=== PATIENT | female | born 1985 | race Caucasian/White ===

== ENCOUNTER 2017-01-29 07:18 | Emergency (ER) | payer OTHER ==
--- NOTE | 2017-01-29 08:46 | ED CLINICAL REPORT ---
Clinical Report - Physicians/Mid Levels [facility] [address] [place] [address] 01/29/2017 7:20 Patient: JOANIE OROSCO Time Seen: 07:49. Arrived- By private vehicle. Historian- patient. HISTORY OF PRESENT ILLNESS Chief Complaint: SORE THROAT. This started about 4 days ago, worse about 6 PM and is still present. It was gradual in onset. Pain described as moderate. The patient has had a moderate sore throat. No mouth sores, nasal discharge, toothache or swollen jaw or face. No jaw pain or facial pain. She has had moderate right ear pain. (Swallowing water is painful). Similar symptoms previously: None. Recent medical care: Not recently seen/assessed. REVIEW OF SYSTEMS Last normal menstrual period- 1.5 weeks. Uses condoms. She has had low grade fever. No eye discomfort, cough, difficulty breathing, chest pain or nausea. No abdominal pain or difficulty with urination. PAST HISTORY PCP: Saul Thurman Illness: None Ops: R ankle, breast augmentation. SOCIAL HISTORY Never smoker. ADDITIONAL NOTES The nursing notes have been reviewed. PHYSICAL EXAM Vital Signs: 01/29/2017 07:29 BP: 132/72. HR: 96. RR: 18. O2 saturation: 98%. Temp: 99.5 F. Pain level now: 9/10. Appearance: Alert. Patient in mild distress. ENT: Ears normal. Small right-sided peritonsillar mass. No mouth ulcerations, tonsillar exudate, muffled or hoarse voice or drooling. The mucous membranes are not dry. Neck: Moderate left anterior neck lymphadenopathy present. Trachea midline. Respiratory: No respiratory distress. Breath sounds normal. Abdomen: Soft. No organomegaly. LABS, X-RAYS, AND EKG Laboratory Tests: Urine: (WICHO: 01/29/2017 07:46) ( MsgRcvd 01/29/2017 08:17) Final results Test Result Flag Units (Reference) URINE NEGATIVE Culture, Strep Screen: (WICHO: 01/29/2017 07:46) ( MsgRcvd 01/31/2017 08:43) Final results Test Result Flag Units (Reference) RAPID STREP SCREEN - THROAT DATE: 01/29/17 NEGATIVE SCREEN: RAPID STREP SCREEN NEGATIVE; CONFIRMATION TO FOLLOW . DATE: 01/31/17 NO BETA STREP ISOLATED: NO BETA STREP ISOLATED . PROGRESS AND PROCEDURES Course of Care: Ms Orosco has an early but definite R peritonsillar abscess or phlegmon. I do not think imaging would add to care at this point. it is not a diagnostic dilemma. No impending airway compromise. Disposition: Discharged. Condition: stable. CLINICAL IMPRESSION Right peritonsillar abscess. INSTRUCTIONS (THIS IS A COLLECTION OF PUS BEHIND YOUR R TONSIL. THE EAR LOOKS OK IMMEDIATE RECHECK FOR INCREASING PAIN OR DIFFICULTY SWALLOWING REALLY WORK AT GETTING FLUIDS DOWN. YOU NEED TO BE URINATING AT LEAST EVERY 4 HOURS.). Prescription Medications: Augmentin 875 mg: take 1 tablet orally every 12 hours for 10 days. No refill. Lortab Elixir take ten (10) mL orally every 4 hours for 4 days as needed for pain. Dispense sufficient quantity. No refill. Substitution is permissible. Decadron 4 mg: Take 1 orally every day. Dispense five (5). No refills. Substitution is permissible. (decadron liquid 6 mg po daily x 4 days) Follow-up: Follow up with your doctor Tuesday. Call for an appointment. Understanding of the discharge instructions verbalized by patient and family. (Electronically signed by Dhruv Hardy MD 01/31/2017 10:02)
--- NOTE | 2017-01-29 08:46 | ED CLINICAL REPORT ---
Clinical Report - Physicians/Mid Levels [facility] [address] [place] [address] 01/29/2017 7:20 Patient: JOANIE OROSCO Time Seen: 07:49. Arrived- By private vehicle. Historian- patient. HISTORY OF PRESENT ILLNESS Chief Complaint: SORE THROAT. This started about 4 days ago, worse about 6 PM and is still present. It was gradual in onset. Pain described as moderate. The patient has had a moderate sore throat. No mouth sores, nasal discharge, toothache or swollen jaw or face. No jaw pain or facial pain. She has had moderate right ear pain. (Swallowing water is painful). Similar symptoms previously: None. Recent medical care: Not recently seen/assessed. REVIEW OF SYSTEMS Last normal menstrual period- 1.5 weeks. Uses condoms. She has had low grade fever. No eye discomfort, cough, difficulty breathing, chest pain or nausea. No abdominal pain or difficulty with urination. PAST HISTORY PCP: Saul Thurman Illness: None Ops: R ankle, breast augmentation. SOCIAL HISTORY Never smoker. ADDITIONAL NOTES The nursing notes have been reviewed. PHYSICAL EXAM Vital Signs: 01/29/2017 07:29 BP: 132/72. HR: 96. RR: 18. O2 saturation: 98%. Temp: 99.5 F. Pain level now: 9/10. Appearance: Alert. Patient in mild distress. ENT: Ears normal. Small right-sided peritonsillar mass. No mouth ulcerations, tonsillar exudate, muffled or hoarse voice or drooling. The mucous membranes are not dry. Neck: Moderate left anterior neck lymphadenopathy present. Trachea midline. Respiratory: No respiratory distress. Breath sounds normal. Abdomen: Soft. No organomegaly. LABS, X-RAYS, AND EKG Laboratory Tests: Urine: (WICHO: 01/29/2017 07:46) ( MsgRcvd 01/29/2017 08:17) Final results Test Result Flag Units (Reference) URINE NEGATIVE Culture, Strep Screen: (WICHO: 01/29/2017 07:46) ( MsgRcvd 01/31/2017 08:43) Final results Test Result Flag Units (Reference) RAPID STREP SCREEN - THROAT DATE: 01/29/17 NEGATIVE SCREEN: RAPID STREP SCREEN NEGATIVE; CONFIRMATION TO FOLLOW . DATE: 01/31/17 NO BETA STREP ISOLATED: NO BETA STREP ISOLATED . PROGRESS AND PROCEDURES Course of Care: Ms Orosco has an early but definite R peritonsillar abscess or phlegmon. I do not think imaging would add to care at this point. it is not a diagnostic dilemma. No impending airway compromise. Disposition: Discharged. Condition: stable. CLINICAL IMPRESSION Right peritonsillar abscess. INSTRUCTIONS (THIS IS A COLLECTION OF PUS BEHIND YOUR R TONSIL. THE EAR LOOKS OK IMMEDIATE RECHECK FOR INCREASING PAIN OR DIFFICULTY SWALLOWING REALLY WORK AT GETTING FLUIDS DOWN. YOU NEED TO BE URINATING AT LEAST EVERY 4 HOURS.). Prescription Medications: Augmentin 875 mg: take 1 tablet orally every 12 hours for 10 days. No refill. Lortab Elixir take ten (10) mL orally every 4 hours for 4 days as needed for pain. Dispense sufficient quantity. No refill. Substitution is permissible. Decadron 4 mg: Take 1 orally every day. Dispense five (5). No refills. Substitution is permissible. (decadron liquid 6 mg po daily x 4 days) Follow-up: Follow up with your doctor Tuesday. Call for an appointment. Understanding of the discharge instructions verbalized by patient and family. (Electronically signed by Dhruv Hardy MD 01/31/2017 10:02)
--- NOTE | 2017-01-29 08:47 | ED NURSING NOTES ---
Clinical Report - Nurses [facility] [address] [place] [address] 01/29/2017 7:20 Patient: JOANIE OORSCO TRIAGE Chief Complaint: SORE THROAT. Alert. No acute distress. SEPSIS SCREEN: Sepsis Screen. Negative (no infection suspected/documented). --07:32 Delia Yousif R.N. 07:29 01/29/17. BP: 132/72. HR: 96. RR: 18. O2 saturation: 98% on room air. Temp: 99.5 F (oral). Pain level now: 05/22. --07:32 Delia Yousif R.N. Weight: 68 kg stated. Height/Length: 65 inches Per Patient. BMI: 25. --07:30 Delia Yousif R.N. Medications None. --07:30 Delia Yousif R.N. Medication/allergy information source: the patient. --07:32 Delia Yousif R.N. Allergies Sulfa Antibiotics. --07:30 Delia Yousif R.N. History Arrived by private vehicle. Historian: patient. Accompanied by (kami). Primary physician (Olman). Onset. (5 days ago). She has had ear pain. PAST MEDICAL HX: Immunizations: status is unknown. SOCIAL HX: Never smoker. No alcohol use or drug use. FALL RISK ASSESSMENT: Fall risk assessment completed. No fall risk identified. NUTRITIONAL RISK ASSESSMENT: The nutritional risk assessment revealed no deficiencies. FUNCTIONAL ASSESSMENT: Functional assessment: no impairments noted. LEARNING NEEDS ASSESSMENT: The learning needs assessment revealed no barriers. SKIN INTEGRITY ASSESSMENT: Skin integrity risk assessment completed. No skin integrity risk identified. --07:32 Delia Yousif R.N. Assessment GENERAL / NEURO / PSYCH: Alert. Oriented X 4. Appears in no acute distress. Patient appears calm and cooperative. RESPIRATORY: Respirations not labored. CVS: Capillary refill less than 2 seconds. GI / : Abdomen nontender. SKIN: Mucous membranes are pink. Skin is warm and dry. --07:32 Delia Yousif R.N. Interventions ID band on patient. To room. --07:32 Delia Yousif R.N. PHYSICAL ASSESSMENT 07:34 01/29/17. Ambulatory to room. GENERAL / NEURO / PSYCH: Alert. Oriented X 4. Appears in no acute distress. HEENT: Pupils equal, round and reactive to light. Voice within normal limits. No signs of head trauma. No dental injury noted. Mucous membranes are pink. RESPIRATORY: Respirations not labored. SKIN: Skin is warm and dry. Normal skin turgor. --07:34 Delia Yousif R.N. NURSING PROGRESS NOTES 07:34 01/29/17. Two patient identifiers checked. Checked patient name and birthdate: patient confirmed. Call light placed in reach. Bed placed in lowest position. Brakes of bed on. Patient ready for evaluation- chart flagged and ED physician notified. --07:34 Delia Yousif R.N. 08:10 01/29/2017 Decadron (Dexamethasone) PO 6 mg given. Allergies verified and confirmed 5 rights. --08:10 Delia Yousif R.N. 08:11 01/29/2017 Lortab Liquid (Hydrocodone-APAP) PO 15 mL given. Allergies verified, confirmed 5 rights and sedative warning given to the patient. (dose 7.5/[address] Hardy). --08:11 Delia Yousif R.N. Checked patient name and birthdate: patient confirmed. Instructions provided to collect clean catch urine and patient verbalized understanding. Clean catch urine collected with return of yellow-colored clear urine; sample sent to lab for HCG. Specimen labeled in the presence of the patient. --08:13 Delia Yousif R.N. 08:13 01/29/17. Checked patient name and birthdate: patient confirmed. Throat swab obtained for rapid strep; labeled in the presence of the patient. --08:13 Delia Yousif R.N. 08:17 01/29/2017 Augmentin (Amoxicillin-Pot Clavulanate) PO 875 mg given. Allergies verified and confirmed 5 rights. --08:17 Delia Yousif R.N. DISPOSITION / DISCHARGE 08:55. Departure time: 0855. Condition at departure: stable. The goals identified in the patient's plan of care were met. No learning barriers present. Discharge instructions provided and reviewed with the patient. Reviewed medication(s) side effects, precautions, dosing and course information. Prescription(s) given to the patient (Pt verbalizes importance of finishing all prescribed anbx. She verbalizes safe, proper use of all prescribed narcotics. She verbalizes importance of not driving and/or operating heavy machinery while taking sedatives.). Reviewed need for increased fluid intake. Patient verbalized understanding. Written instructions provided in Urdu. The patient was discharged by the physician. She was discharged home and accompanied by spouse. She left the Emergency Department ambulatory and via private vehicle. Spouse driving. SUNNI COMA SCORE: Holder Coma Scale: 15- eyes open spontaneously (4); best verbal response- oriented x 4 (5); best motor response- obeys commands (6). --08:59 Cj Burch R.N. 08:56 01/29/17. BP: 123/63 (regular adult cuff) taken on the left arm, via an automated monitor, while sitting. HR: 74 (normal rate). RR: 14 (regular, unlabored and normal). O2 saturation: 98% on room air. Temp: 98.6 F (oral). Pain level now: 04/21. --08:59 Cj Burch R.N. Locked/Released at 01/29/2017 8:59 by Cj Burch R.N.
--- NOTE | 2017-01-29 08:47 | ED ORDER SUMMARY ---
..... Patient: JOANIE OROSCO OrderSheet [facility] VisitID: [id number] [address] [place] [address] 31y, F Registration Date/Time: 01/29/2017 ORDER SHEET Weight: 68.0 kg (stated) Allergies: Sulfa Antibiotics GENERAL ORDERS: Culture, Strep Screen Urgent (07:54 01/29/2017 Rosi GORDON) (Ack 7:56 Vik) (8:10 MWinterer R.N.) Urine Urgent (07:55 01/29/2017 Rosi GORDON) (Ack 7:56 Vik) (8:10 MWinterer R.N.) MEDICATION ORDERS: Decadron PO 6 mg (NOW) (07:56 01/29/2017 Rosi GORDON) (Ack 8:02 MWinterer R.N.) (8:10 MWinterer R.N.) Lortab Liquid PO 15 mL of 5/325 per 15 ml (NOW) (07:57 01/29/2017 Rosi GORDON) (8:11 MWinterer R.N.) Augmentin PO 875 mg (NOW) (08:06 01/29/2017 Rosi GORDON) (Ack 8:11 MWinterer R.N.) (8:17 MWinterer R.N.) IV FLUIDS: ORDER SHEET NOTES: [Electronically signed by Cj Burch R.N. (08:59 01/29/2017)] [Electronically signed by Dhruv Hardy MD (10:02 01/31/2017)] [Electronically locked/signed by Cj Burch R.N. (08:59 01/29/2017)]
--- NOTE | 2017-01-29 08:47 | ED ORDER SUMMARY ---
..... Patient: JOANIE OROSCO OrderSheet [facility] VisitID: [id number] [address] [place] [address] 31y, F Registration Date/Time: 01/29/2017 ORDER SHEET Weight: 68.0 kg (stated) Allergies: Sulfa Antibiotics GENERAL ORDERS: Culture, Strep Screen Urgent (07:54 01/29/2017 Rosi GORDON) (Ack 7:56 Vik) (8:10 MWinterer R.N.) Urine Urgent (07:55 01/29/2017 Rosi GORDON) (Ack 7:56 Vik) (8:10 MWinterer R.N.) MEDICATION ORDERS: Decadron PO 6 mg (NOW) (07:56 01/29/2017 Rosi GORDON) (Ack 8:02 MWinterer R.N.) (8:10 MWinterer R.N.) Lortab Liquid PO 15 mL of 5/325 per 15 ml (NOW) (07:57 01/29/2017 Rosi GORDON) (8:11 MWinterer R.N.) Augmentin PO 875 mg (NOW) (08:06 01/29/2017 Rosi GORDON) (Ack 8:11 MWinterer R.N.) (8:17 MWinterer R.N.) IV FLUIDS: ORDER SHEET NOTES: [Electronically signed by jC Burch R.N. (08:59 01/29/2017)] [Electronically signed by Dhruv Hardy MD (10:02 01/31/2017)] [Electronically locked/signed by Cj Burch R.N. (08:59 01/29/2017)]
--- NOTE | 2017-01-31 10:03 | ED DISCHARGE INSTRUCTIONS ---
Patient: JOANIE OROSCO General Instructions [facility] VisitID: [id number] [place] [address] 31y, F Registration Date/Time: 01/29/2017 Right peritonsillar abscess. INSTRUCTIONS (THIS IS A COLLECTION OF PUS BEHIND YOUR R TONSIL. THE EAR LOOKS OK IMMEDIATE RECHECK FOR INCREASING PAIN OR DIFFICULTY SWALLOWING REALLY WORK AT GETTING FLUIDS DOWN. YOU NEED TO BE URINATING AT LEAST EVERY 4 HOURS.). Prescription Medications: Augmentin 875 mg: take 1 tablet orally every 12 hours for 10 days. No refill. Lortab Elixir take ten (10) mL orally every 4 hours for 4 days as needed for pain. Dispense sufficient quantity. No refill. Substitution is permissible. Decadron 4 mg: Take 1 orally every day. Dispense five (5). No refills. Substitution is permissible. (decadron liquid 6 mg po daily x 4 days) Follow-up: Follow up with your doctor Tuesday. Call for an appointment. Understanding of the discharge instructions verbalized by patient and family. ADDITIONAL INFORMATION Peritonsillar Abscess Your throat pain is due to an infection in and around the tonsils. This is due to a bacterial infection causing an abscess (collection of pus) to form around the tonsil. This abscess can cause severe pain when swallowing or trying to open your mouth wide. An early abscess may be treated with antibiotics alone. A larger abscess will require surgical drainage plus antibiotics. The bacteria causing this condition may be contagious. It can be spread by coughing, kissing or touching others after you touch your mouth or nose. It may produce a sore throat in others (not necessarily a peritonsillar abscess). Home Care: 1) Take your antibiotics until finished, even if you feel better after the first few days of treatment. This is very important to prevent later problems from this infection (such as heart or kidney disease). 2) If your symptoms are severe, rest at home for the first 2-3 days. 3) Children : Use Tylenol (acetaminophen) for fever, fussiness or discomfort. In infants over six months of age, you may use ibuprofen (Children's Motrin) instead of Tylenol. (Aspirin should never be used in anyone under 18 years of age who is ill with a fever. It may cause severe liver damage.) Adults : For muscle aching or throat pain, you may take ibuprofen (Advil, Motrin) or Tylenol (acetaminophen) unless another pain medicine was prescribed. [ NOTE : If you have chronic liver or kidney disease or ever had a stomach ulcer or GI bleeding, talk with your doctor before using these medicines.] (Aspirin should never be used in anyone under 18 years of age who is ill with a fever. It may cause severe liver damage.) 4) Throat lozenges or sprays (Chloraseptic and others) may help reduce throat pain. This is especially useful just before meals. 5) Gargle with warm salt water four times a day for the first two days. Dissolve 1/2 teaspoon of salt in 1 glass of hot water. Follow Up with your doctor or this facility as advised within 1-2 days. If you are treated with antibiotics alone, it is very important to be rechecked within 24 hours to be sure that the abscess is not getting bigger. Get Prompt Medical Attention if any of the following occur: -- Fever over 100.5 F (38.0 C) oral by the third day of treatment -- Throat pain, neck pain or headache that gets worse -- Unable to swallow liquids or take your medicine -- Trouble breathing or noisy breathing Amoxicillin Trihydrate, Clavulanate Potassium Oral tablet What is this medicine? AMOXICILLIN; CLAVULANIC ACID (a mox i CARRIE in; SOFIA perez ic id) is a penicillin antibiotic. It is used to treat certain kinds of bacterial infections. It will not work for colds, flu, or other viral infections. How should I use this medicine? Take this medicine by mouth with a full glass of water. Follow the directions on the prescription label. Take at the start of a meal. Do not crush or chew. If the tablet has a score line, you may cut it in half at the score line for easier swallowing. Take your medicine at regular intervals. Do not take your medicine more often than directed. Take all of your medicine as directed even if you think you are better. Do not skip doses or stop your medicine early. Talk to your compliance program manager regarding the use of this medicine in children. Special care may be needed. What side effects may I notice from receiving this medicine? Side effects that you should report to your doctor or health adult live in caregiver as soon as possible: allergic reactions like skin rash, itching or hives, swelling of the face, lips, or tongue breathing problems dark urine fever or chills, sore throat redness, blistering, peeling or loosening of the skin, including inside the mouth seizures trouble passing urine or change in the amount of urine unusual bleeding, bruising unusually weak or tired white patches or sores in the mouth or throat Side effects that usually do not require medical attention (report to your doctor or health adult live in caregiver if they continue or are bothersome): diarrhea dizziness headache nausea, vomiting stomach upset vaginal or anal irritation What may interact with this medicine? allopurinol anticoagulants control pills methotrexate probenecid What if I miss a dose? If you miss a dose, take it as soon as you can. If it is almost time for your next dose, take only that dose. Do not take double or extra doses. Where should I keep my medicine? Keep out of the reach of children. Store at room temperature below 25 degrees C (77 degrees F). Keep container tightly closed. Throw away any unused medicine after the expiration date. What should I tell my health care provider before I take this medicine? They need to know if you have any of these conditions: bowel disease, like colitis kidney disease liver disease mononucleosis an unusual or allergic reaction to amoxicillin, penicillin, cephalosporin, other antibiotics, clavulanic acid, other medicines, foods, dyes, or preservatives or trying to get breast-feeding What should I watch for while using this medicine? Tell your doctor or health adult live in caregiver if your symptoms do not improve. Do not treat diarrhea with over the counter products. Contact your doctor if you have diarrhea that lasts more than 2 days or if it is severe and watery. If you have diabetes, you may get a false-positive result for sugar in your urine. Check with your doctor or health adult live in caregiver. control pills may not work properly while you are taking this medicine. Talk to your doctor about using an extra method of control. Hydrocodone Bitartrate, Acetaminophen Oral solution What is this medicine? ACETAMINOPHEN; HYDROCODONE (a set a KYRA nikita fen; jaimee droe KOE done) is a pain reliever. It is used to treat mild to moderate pain. How should I use this medicine? Take this medicine by mouth. Use a specially marked spoon or dropper to measure your dose. Ask your pharmacist if you do not have a dropper or measuring spoon. Do not use a household spoon. Follow the directions on the prescription label. If the medicine upsets your stomach, take it with food or milk. Do not take more medicine than you are told to take. Talk to your compliance program manager regarding the use of this medicine in children. This medicine is not approved for use in children. What side effects may I notice from receiving this medicine? Side effects that you should report to your doctor or health adult live in caregiver as soon as possible: allergic reactions like skin rash, itching or hives, swelling of the face, lips, or tongue breathing problems confusion feeling faint or lightheaded, falls stomach pain yellowing of the eyes or skin Side effects that usually do not require medical attention (report to your doctor or health adult live in caregiver if they continue or are bothersome): nausea, vomiting stomach upset What may interact with this medicine? alcohol antihistamines isoniazid medicines for depression, anxiety, or psychotic disturbances medicines for sleep muscle relaxants naltrexone narcotic medicines (opiates) for pain phenobarbital ritonavir tramadol What if I miss a dose? If you miss a dose, take it as soon as you can. If it is almost time for your next dose, take only that dose. Do not take double or extra doses. Where should I keep my medicine? Keep out of the reach of children. This medicine can be abused. Keep your medicine in a safe place to protect it from theft. Do not share this medicine with anyone. Selling or giving away this medicine is dangerous and against the law. Store at room temperature between 20 and 25 degrees C (68 and 77 degrees F). Protect from light. Keep container tightly closed. Throw away any unused medicine after the expiration date. Discard unused medicine and used packaging carefully. Pets and children can be harmed if they find used or lost packages. What should I tell my health care provider before I take this medicine? They need to know if you have any of these conditions: brain tumor Crohn's disease, inflammatory bowel disease, or ulcerative colitis drink more than 3 alcohol-containing drinks per day drug abuse or addiction head injury heart or circulation problems kidney disease or problems going to the bathroom liver disease lung disease, asthma, or breathing problems an unusual or allergic reaction to acetaminophen, hydrocodone, other opioid analgesics, other medicines, foods, dyes, or preservatives or trying to get breast-feeding What should I watch for while using this medicine? Tell your doctor or health adult live in caregiver if your pain does not go away, if it gets worse, or if you have new or a different type of pain. You may develop tolerance to the medicine. Tolerance means that you will need a higher dose of the medicine for pain relief. Tolerance is normal and is expected if you take this medicine for a long time. Do not suddenly stop taking your medicine because you may develop a severe reaction. Your body becomes used to the medicine. This does NOT mean you are addicted. Addiction is a behavior related to getting and using a drug for a non-medical reason. If you have pain, you have a medical reason to take pain medicine. Your doctor will tell you how much medicine to take. If your doctor wants you to stop the medicine, the dose will be slowly lowered over time to avoid any side effects. You may get drowsy or dizzy when you first start taking the medicine or change doses. Do not drive, use machinery, or do anything that may be dangerous until you know how the medicine affects you. Stand or sit up slowly. There are different types of narcotic medicines (opiates) for pain. If you take more than one type at the same time, you may have more side effects. Give your health care provider a list of all medicines you use. Your doctor will tell you how much medicine to take. Do not take more medicine than directed. Call emergency for help if you have problems breathing. The medicine will cause constipation. Try to have a bowel movement at least every 2 to 3 days. If you do not have a bowel movement for 3 days, call your doctor or health adult live in caregiver. Too much acetaminophen can be very dangerous. Do not take Tylenol (acetaminophen) or medicines that contain acetaminophen with this medicine. Many non-prescription medicines contain acetaminophen. Always read the labels carefully. Dexamethasone Oral tablet What is this medicine? DEXAMETHASONE (dex a METH a sone) is a corticosteroid. It is commonly used to treat inflammation of the skin, joints, lungs, and other organs. Common conditions treated include asthma, allergies, and arthritis. It is also used for other conditions, such as blood disorders and diseases of the adrenal glands. How should I use this medicine? Take this medicine by mouth with a drink of water. Follow the directions on the prescription label. Take it with food or milk to avoid stomach upset. If you are taking this medicine once a day, take it in the morning. Do not take more medicine than you are told to take. Do not suddenly stop taking your medicine because you may develop a severe reaction. Your doctor will tell you how much medicine to take. If your doctor wants you to stop the medicine, the dose may be slowly lowered over time to avoid any side effects. Talk to your compliance program manager regarding the use of this medicine in children. Special care may be needed. Patients over 65 years old may have a stronger reaction and need a smaller dose. What side effects may I notice from receiving this medicine? Side effects that you should report to your doctor or health adult live in caregiver as soon as possible: allergic reactions like skin rash, itching or hives, swelling of the face, lips, or tongue changes in vision fever, sore throat, sneezing, cough, or other signs of infection, wounds that will not heal increased thirst mental depression, mood swings, mistaken feelings of self importance or of being mistreated pain in hips, back, ribs, arms, shoulders, or legs redness, blistering, peeling or loosening of the skin, including inside the mouth trouble passing urine or change in the amount of urine swelling of feet or lower legs unusual bleeding or bruising Side effects that usually do not require medical attention (report to your doctor or health adult live in caregiver if they continue or are bothersome): headache nausea, vomiting skin problems, acne, thin and shiny skin weight gain What may interact with this medicine? Do not take this medicine with any of the following medications: mifepristone, RU-486 vaccines This medicine may also interact with the following medications: amphotericin B antibiotics like clarithromycin, erythromycin, and troleandomycin aspirin and aspirin-like drugs barbiturates like phenobarbital carbamazepine cholestyramine cholinesterase inhibitors like donepezil, galantamine, rivastigmine, and tacrine cyclosporine digoxin diuretics ephedrine female hormones, like estrogens or progestins and control pills indinavir isoniazid ketoconazole medicines for diabetes medicines that improve muscle tone or strength for conditions like myasthenia gravis NSAIDs, medicines for pain and inflammation, like ibuprofen or naproxen phenytoin rifampin thalidomide warfarin What if I miss a dose? If you miss a dose, take it as soon as you can. If it is almost time for your next dose, talk to your doctor or health adult live in caregiver. You may need to miss a dose or take an extra dose. Do not take double or extra doses without advice. Where should I keep my medicine? Keep out of the reach of children. Store at room temperature between 20 and 25 degrees C (68 and 77 degrees F). Protect from light. Throw away any unused medicine after the expiration date. What should I tell my health care provider before I take this medicine? They need to know if you have any of these conditions: [place]'s syndrome diabetes glaucoma heart problems or disease high blood pressure infection like herpes, measles, tuberculosis, or chickenpox kidney disease liver disease mental problems myasthenia gravis osteoporosis previous heart attack seizures stomach, ulcer or intestine disease including colitis and diverticulitis thyroid problem an unusual or allergic reaction to dexamethasone, corticosteroids, other medicines, lactose, foods, dyes, or preservatives or trying to get breast-feeding What should I watch for while using this medicine? Visit your doctor or health adult live in caregiver for regular checks on your progress. If you are taking this medicine over a prolonged period, carry an identification card with your name and address, the type and dose of your medicine, and your doctor's name and address. This medicine may increase your risk of getting an infection. Stay away from people who are sick. Tell your doctor or health adult live in caregiver if you are around anyone with measles or chickenpox. If you are going to have surgery, tell your doctor or health adult live in caregiver that you have taken this medicine within the last twelve months. Ask your doctor or health adult live in caregiver about your diet. You may need to lower the amount of salt you eat. The medicine can increase your blood sugar. If you are a diabetic check with your doctor if you need help adjusting the dose of your diabetic medicine. You have been given the following additional information: Peritonsillar Abscess Amoxicillin Trihydrate, Clavulanate Potassium Oral tablet Hydrocodone Bitartrate, Acetaminophen Oral solution Dexamethasone Oral tablet (Electronically signed by Dhruv Hardy MD 01/31/2017 10:02)
--- NOTE | 2017-01-31 10:03 | ED MED RECONCILIATION SUMMARY ---
Patient: JOANIE OROSCO Medication Reconciliation Report [facility] VisitID: [id number] [address] [place] [address] 31y, F Registration Date/Time: 01/29/2017 Weight: 68.0 kg Height/Length: 65 in. BMI: 25.0 ALLERGIES: Sulfa Antibiotics The patient's Home Medications are listed below: NONE. The source(s) of the original Home Medication information: patient The following Medications were given to the patient in the Emergency Department: Decadron [PO] PO 6 mg, administered: 01/29/2017 8:10:00 AM Lortab Liquid [PO] PO 15 mL, administered: 01/29/2017 8:11:00 AM Augmentin [PO] PO 875 mg, administered: 01/29/2017 8:17:00 AM The following Medications were prescribed to the patient: Augmentin 875 mg: take 1 tablet orally every 12 hours for 10 days. No refill. -- Dhruv Hardy MD Lortab Elixir take ten (10) mL orally every 4 hours for 4 days as needed for pain. Dispense sufficient quantity. No refill. Substitution is permissible. -- Dhruv Hardy MD Decadron 4 mg: Take 1 orally every day. Dispense five (5). No refills. Substitution is permissible.(decadron liquid 6 mg po daily x 4 days) -- Dhruv Hardy MD
--- NOTE | 2017-01-31 10:03 | ED MED RECONCILIATION SUMMARY ---
Patient: JOANIE OROSCO Medication Reconciliation Report [facility] VisitID: [id number] [address] [place] [address] 31y, F Registration Date/Time: 01/29/2017 Weight: 68.0 kg Height/Length: 65 in. BMI: 25.0 ALLERGIES: Sulfa Antibiotics The patient's Home Medications are listed below: NONE. The source(s) of the original Home Medication information: patient The following Medications were given to the patient in the Emergency Department: Decadron [PO] PO 6 mg, administered: 01/29/2017 8:10:00 AM Lortab Liquid [PO] PO 15 mL, administered: 01/29/2017 8:11:00 AM Augmentin [PO] PO 875 mg, administered: 01/29/2017 8:17:00 AM The following Medications were prescribed to the patient: Augmentin 875 mg: take 1 tablet orally every 12 hours for 10 days. No refill. -- Dhruv Hardy MD Lortab Elixir take ten (10) mL orally every 4 hours for 4 days as needed for pain. Dispense sufficient quantity. No refill. Substitution is permissible. -- Dhruv Hardy MD Decadron 4 mg: Take 1 orally every day. Dispense five (5). No refills. Substitution is permissible.(decadron liquid 6 mg po daily x 4 days) -- Dhruv Hardy MD
--- NOTE | 2017-01-31 10:03 | ED MAR SUMMARY ---
..... Medication Administration Record [facility] [address] [place] [address] Patient: JOANIE OROSCO Visit ID: [id number] 31y, F Weight: 68.0 kg Height/Length: 65 in BMI: 25 ALLERGIES: Sulfa Antibiotics Given 08:10 01/29/2017 Delia Yousif, RGovindN. Medication Administered: DECADRON [PO] (DEXAMETHASONE), Dose: 6 mg PO. Medication Ordered: Decadron PO 6 mg (NOW). Given 08:11 01/29/2017 Delia Yousif, R.N. Medication Administered: LORTAB LIQUID [PO] (HYDROCODONE-APAP), Dose: 15 mL PO. Medication Ordered: Lortab Liquid PO 15 mL of 5/325 per 15 ml (NOW). Given 08:17 01/29/2017 Delia Yousif, R.N. Medication Administered: AUGMENTIN [PO] (AMOXICILLIN-POT CLAVULANATE), Dose: 875 mg PO. Medication Ordered: Augmentin PO 875 mg (NOW).
--- NOTE | 2017-01-31 10:03 | ED DISCHARGE INSTRUCTIONS ---
Patient: JOANIE OROSCO General Instructions [facility] VisitID: [id number] [place] [address] 31y, F Registration Date/Time: 01/29/2017 Right peritonsillar abscess. INSTRUCTIONS (THIS IS A COLLECTION OF PUS BEHIND YOUR R TONSIL. THE EAR LOOKS OK IMMEDIATE RECHECK FOR INCREASING PAIN OR DIFFICULTY SWALLOWING REALLY WORK AT GETTING FLUIDS DOWN. YOU NEED TO BE URINATING AT LEAST EVERY 4 HOURS.). Prescription Medications: Augmentin 875 mg: take 1 tablet orally every 12 hours for 10 days. No refill. Lortab Elixir take ten (10) mL orally every 4 hours for 4 days as needed for pain. Dispense sufficient quantity. No refill. Substitution is permissible. Decadron 4 mg: Take 1 orally every day. Dispense five (5). No refills. Substitution is permissible. (decadron liquid 6 mg po daily x 4 days) Follow-up: Follow up with your doctor Tuesday. Call for an appointment. Understanding of the discharge instructions verbalized by patient and family. ADDITIONAL INFORMATION Peritonsillar Abscess Your throat pain is due to an infection in and around the tonsils. This is due to a bacterial infection causing an abscess (collection of pus) to form around the tonsil. This abscess can cause severe pain when swallowing or trying to open your mouth wide. An early abscess may be treated with antibiotics alone. A larger abscess will require surgical drainage plus antibiotics. The bacteria causing this condition may be contagious. It can be spread by coughing, kissing or touching others after you touch your mouth or nose. It may produce a sore throat in others (not necessarily a peritonsillar abscess). Home Care: 1) Take your antibiotics until finished, even if you feel better after the first few days of treatment. This is very important to prevent later problems from this infection (such as heart or kidney disease). 2) If your symptoms are severe, rest at home for the first 2-3 days. 3) Children : Use Tylenol (acetaminophen) for fever, fussiness or discomfort. In infants over six months of age, you may use ibuprofen (Children's Motrin) instead of Tylenol. (Aspirin should never be used in anyone under 18 years of age who is ill with a fever. It may cause severe liver damage.) Adults : For muscle aching or throat pain, you may take ibuprofen (Advil, Motrin) or Tylenol (acetaminophen) unless another pain medicine was prescribed. [ NOTE : If you have chronic liver or kidney disease or ever had a stomach ulcer or GI bleeding, talk with your doctor before using these medicines.] (Aspirin should never be used in anyone under 18 years of age who is ill with a fever. It may cause severe liver damage.) 4) Throat lozenges or sprays (Chloraseptic and others) may help reduce throat pain. This is especially useful just before meals. 5) Gargle with warm salt water four times a day for the first two days. Dissolve 1/2 teaspoon of salt in 1 glass of hot water. Follow Up with your doctor or this facility as advised within 1-2 days. If you are treated with antibiotics alone, it is very important to be rechecked within 24 hours to be sure that the abscess is not getting bigger. Get Prompt Medical Attention if any of the following occur: -- Fever over 100.5 F (38.0 C) oral by the third day of treatment -- Throat pain, neck pain or headache that gets worse -- Unable to swallow liquids or take your medicine -- Trouble breathing or noisy breathing Amoxicillin Trihydrate, Clavulanate Potassium Oral tablet What is this medicine? AMOXICILLIN; CLAVULANIC ACID (a mox i CRARIE in; SOFIA perez ic id) is a penicillin antibiotic. It is used to treat certain kinds of bacterial infections. It will not work for colds, flu, or other viral infections. How should I use this medicine? Take this medicine by mouth with a full glass of water. Follow the directions on the prescription label. Take at the start of a meal. Do not crush or chew. If the tablet has a score line, you may cut it in half at the score line for easier swallowing. Take your medicine at regular intervals. Do not take your medicine more often than directed. Take all of your medicine as directed even if you think you are better. Do not skip doses or stop your medicine early. Talk to your game preserve manager regarding the use of this medicine in children. Special care may be needed. What side effects may I notice from receiving this medicine? Side effects that you should report to your doctor or health childcare provider as soon as possible: allergic reactions like skin rash, itching or hives, swelling of the face, lips, or tongue breathing problems dark urine fever or chills, sore throat redness, blistering, peeling or loosening of the skin, including inside the mouth seizures trouble passing urine or change in the amount of urine unusual bleeding, bruising unusually weak or tired white patches or sores in the mouth or throat Side effects that usually do not require medical attention (report to your doctor or health childcare provider if they continue or are bothersome): diarrhea dizziness headache nausea, vomiting stomach upset vaginal or anal irritation What may interact with this medicine? allopurinol anticoagulants control pills methotrexate probenecid What if I miss a dose? If you miss a dose, take it as soon as you can. If it is almost time for your next dose, take only that dose. Do not take double or extra doses. Where should I keep my medicine? Keep out of the reach of children. Store at room temperature below 25 degrees C (77 degrees F). Keep container tightly closed. Throw away any unused medicine after the expiration date. What should I tell my health care provider before I take this medicine? They need to know if you have any of these conditions: bowel disease, like colitis kidney disease liver disease mononucleosis an unusual or allergic reaction to amoxicillin, penicillin, cephalosporin, other antibiotics, clavulanic acid, other medicines, foods, dyes, or preservatives or trying to get breast-feeding What should I watch for while using this medicine? Tell your doctor or health childcare provider if your symptoms do not improve. Do not treat diarrhea with over the counter products. Contact your doctor if you have diarrhea that lasts more than 2 days or if it is severe and watery. If you have diabetes, you may get a false-positive result for sugar in your urine. Check with your doctor or health childcare provider. control pills may not work properly while you are taking this medicine. Talk to your doctor about using an extra method of control. Hydrocodone Bitartrate, Acetaminophen Oral solution What is this medicine? ACETAMINOPHEN; HYDROCODONE (a set a KYRA nikita fen; jaimee droe KOE done) is a pain reliever. It is used to treat mild to moderate pain. How should I use this medicine? Take this medicine by mouth. Use a specially marked spoon or dropper to measure your dose. Ask your pharmacist if you do not have a dropper or measuring spoon. Do not use a household spoon. Follow the directions on the prescription label. If the medicine upsets your stomach, take it with food or milk. Do not take more medicine than you are told to take. Talk to your game preserve manager regarding the use of this medicine in children. This medicine is not approved for use in children. What side effects may I notice from receiving this medicine? Side effects that you should report to your doctor or health childcare provider as soon as possible: allergic reactions like skin rash, itching or hives, swelling of the face, lips, or tongue breathing problems confusion feeling faint or lightheaded, falls stomach pain yellowing of the eyes or skin Side effects that usually do not require medical attention (report to your doctor or health childcare provider if they continue or are bothersome): nausea, vomiting stomach upset What may interact with this medicine? alcohol antihistamines isoniazid medicines for depression, anxiety, or psychotic disturbances medicines for sleep muscle relaxants naltrexone narcotic medicines (opiates) for pain phenobarbital ritonavir tramadol What if I miss a dose? If you miss a dose, take it as soon as you can. If it is almost time for your next dose, take only that dose. Do not take double or extra doses. Where should I keep my medicine? Keep out of the reach of children. This medicine can be abused. Keep your medicine in a safe place to protect it from theft. Do not share this medicine with anyone. Selling or giving away this medicine is dangerous and against the law. Store at room temperature between 20 and 25 degrees C (68 and 77 degrees F). Protect from light. Keep container tightly closed. Throw away any unused medicine after the expiration date. Discard unused medicine and used packaging carefully. Pets and children can be harmed if they find used or lost packages. What should I tell my health care provider before I take this medicine? They need to know if you have any of these conditions: brain tumor Crohn's disease, inflammatory bowel disease, or ulcerative colitis drink more than 3 alcohol-containing drinks per day drug abuse or addiction head injury heart or circulation problems kidney disease or problems going to the bathroom liver disease lung disease, asthma, or breathing problems an unusual or allergic reaction to acetaminophen, hydrocodone, other opioid analgesics, other medicines, foods, dyes, or preservatives or trying to get breast-feeding What should I watch for while using this medicine? Tell your doctor or health childcare provider if your pain does not go away, if it gets worse, or if you have new or a different type of pain. You may develop tolerance to the medicine. Tolerance means that you will need a higher dose of the medicine for pain relief. Tolerance is normal and is expected if you take this medicine for a long time. Do not suddenly stop taking your medicine because you may develop a severe reaction. Your body becomes used to the medicine. This does NOT mean you are addicted. Addiction is a behavior related to getting and using a drug for a non-medical reason. If you have pain, you have a medical reason to take pain medicine. Your doctor will tell you how much medicine to take. If your doctor wants you to stop the medicine, the dose will be slowly lowered over time to avoid any side effects. You may get drowsy or dizzy when you first start taking the medicine or change doses. Do not drive, use machinery, or do anything that may be dangerous until you know how the medicine affects you. Stand or sit up slowly. There are different types of narcotic medicines (opiates) for pain. If you take more than one type at the same time, you may have more side effects. Give your health care provider a list of all medicines you use. Your doctor will tell you how much medicine to take. Do not take more medicine than directed. Call emergency for help if you have problems breathing. The medicine will cause constipation. Try to have a bowel movement at least every 2 to 3 days. If you do not have a bowel movement for 3 days, call your doctor or health childcare provider. Too much acetaminophen can be very dangerous. Do not take Tylenol (acetaminophen) or medicines that contain acetaminophen with this medicine. Many non-prescription medicines contain acetaminophen. Always read the labels carefully. Dexamethasone Oral tablet What is this medicine? DEXAMETHASONE (dex a METH a sone) is a corticosteroid. It is commonly used to treat inflammation of the skin, joints, lungs, and other organs. Common conditions treated include asthma, allergies, and arthritis. It is also used for other conditions, such as blood disorders and diseases of the adrenal glands. How should I use this medicine? Take this medicine by mouth with a drink of water. Follow the directions on the prescription label. Take it with food or milk to avoid stomach upset. If you are taking this medicine once a day, take it in the morning. Do not take more medicine than you are told to take. Do not suddenly stop taking your medicine because you may develop a severe reaction. Your doctor will tell you how much medicine to take. If your doctor wants you to stop the medicine, the dose may be slowly lowered over time to avoid any side effects. Talk to your game preserve manager regarding the use of this medicine in children. Special care may be needed. Patients over 65 years old may have a stronger reaction and need a smaller dose. What side effects may I notice from receiving this medicine? Side effects that you should report to your doctor or health childcare provider as soon as possible: allergic reactions like skin rash, itching or hives, swelling of the face, lips, or tongue changes in vision fever, sore throat, sneezing, cough, or other signs of infection, wounds that will not heal increased thirst mental depression, mood swings, mistaken feelings of self importance or of being mistreated pain in hips, back, ribs, arms, shoulders, or legs redness, blistering, peeling or loosening of the skin, including inside the mouth trouble passing urine or change in the amount of urine swelling of feet or lower legs unusual bleeding or bruising Side effects that usually do not require medical attention (report to your doctor or health childcare provider if they continue or are bothersome): headache nausea, vomiting skin problems, acne, thin and shiny skin weight gain What may interact with this medicine? Do not take this medicine with any of the following medications: mifepristone, RU-486 vaccines This medicine may also interact with the following medications: amphotericin B antibiotics like clarithromycin, erythromycin, and troleandomycin aspirin and aspirin-like drugs barbiturates like phenobarbital carbamazepine cholestyramine cholinesterase inhibitors like donepezil, galantamine, rivastigmine, and tacrine cyclosporine digoxin diuretics ephedrine female hormones, like estrogens or progestins and control pills indinavir isoniazid ketoconazole medicines for diabetes medicines that improve muscle tone or strength for conditions like myasthenia gravis NSAIDs, medicines for pain and inflammation, like ibuprofen or naproxen phenytoin rifampin thalidomide warfarin What if I miss a dose? If you miss a dose, take it as soon as you can. If it is almost time for your next dose, talk to your doctor or health childcare provider. You may need to miss a dose or take an extra dose. Do not take double or extra doses without advice. Where should I keep my medicine? Keep out of the reach of children. Store at room temperature between 20 and 25 degrees C (68 and 77 degrees F). Protect from light. Throw away any unused medicine after the expiration date. What should I tell my health care provider before I take this medicine? They need to know if you have any of these conditions: [place]'s syndrome diabetes glaucoma heart problems or disease high blood pressure infection like herpes, measles, tuberculosis, or chickenpox kidney disease liver disease mental problems myasthenia gravis osteoporosis previous heart attack seizures stomach, ulcer or intestine disease including colitis and diverticulitis thyroid problem an unusual or allergic reaction to dexamethasone, corticosteroids, other medicines, lactose, foods, dyes, or preservatives or trying to get breast-feeding What should I watch for while using this medicine? Visit your doctor or health childcare provider for regular checks on your progress. If you are taking this medicine over a prolonged period, carry an identification card with your name and address, the type and dose of your medicine, and your doctor's name and address. This medicine may increase your risk of getting an infection. Stay away from people who are sick. Tell your doctor or health childcare provider if you are around anyone with measles or chickenpox. If you are going to have surgery, tell your doctor or health childcare provider that you have taken this medicine within the last twelve months. Ask your doctor or health childcare provider about your diet. You may need to lower the amount of salt you eat. The medicine can increase your blood sugar. If you are a diabetic check with your doctor if you need help adjusting the dose of your diabetic medicine. You have been given the following additional information: Peritonsillar Abscess Amoxicillin Trihydrate, Clavulanate Potassium Oral tablet Hydrocodone Bitartrate, Acetaminophen Oral solution Dexamethasone Oral tablet (Electronically signed by Dhruv Hardy MD 01/31/2017 10:02)
--- NOTE | 2017-01-31 10:03 | ED MAR SUMMARY ---
..... Medication Administration Record [facility] [address] [place] [address] Patient: JOANIE OROSCO Visit ID: [id number] 31y, F Weight: 68.0 kg Height/Length: 65 in BMI: 25 ALLERGIES: Sulfa Antibiotics Given 08:10 01/29/2017 Delia Yousif, RGovindN. Medication Administered: DECADRON [PO] (DEXAMETHASONE), Dose: 6 mg PO. Medication Ordered: Decadron PO 6 mg (NOW). Given 08:11 01/29/2017 Delia Yousif, R.N. Medication Administered: LORTAB LIQUID [PO] (HYDROCODONE-APAP), Dose: 15 mL PO. Medication Ordered: Lortab Liquid PO 15 mL of 5/325 per 15 ml (NOW). Given 08:17 01/29/2017 Delia Yousif, R.N. Medication Administered: AUGMENTIN [PO] (AMOXICILLIN-POT CLAVULANATE), Dose: 875 mg PO. Medication Ordered: Augmentin PO 875 mg (NOW).
== END 2017-01-29 08:57 | disposition home or self-care (01) ==
LOC: ED SRH 07:18
DX: J36 Peritonsillar abscess (principal)
CPT/HCPCS: 90154; 90159; 93070

== ENCOUNTER 2017-02-02 11:31 | Emergency (ER) | payer OTHER ==
--- NOTE | 2017-02-02 13:30 | ED ORDER SUMMARY ---
..... Patient: JOANIE OROSCO OrderSheet [facility] VisitID: [id number] [place] [address] 31y, F Registration Date/Time: 02/02/2017 ORDER SHEET Weight: 70.3 kg (stated) Allergies: Sulfa Antibiotics GENERAL ORDERS: Blood Culture (Yes) (augmentin) Urgent (12:27 02/02/2017 Pancho GORDON) (Ack 12:31 KHoerner) (12:50 KHoerner) CBC w Diff Urgent (12:02/02/2017 Pancho GORDON) (Ack 12:31 CARLOSoerner) (12:40 JBoardley R.N.) CMP Urgent (12:02/02/2017 Pancho GORDON) (Ack 12:31 CARLOSoerner) (12:40 JBoardley R.N.) Lactate, Serum Urgent (12:02/02/2017 Pancho GORDON) (Ack 12:31 KHoerner) (12:50 KHoerner) MEDICATION ORDERS: IV FLUIDS: IV NS : initial bolus 500 mL (1000 mL/hr), then 125 mL/hr for 4h (NOW); Urgent (12:29 02/02/2017 Pancho GORDON) (Ack 12:29 JBoardley R.N.) (12:41 JBoardley R.N.) ORDER SHEET NOTES: [Electronically signed by Benedicto Yancey R.N. (13:45 02/02/2017)] [Electronically signed by Say Caceres MD (23:57 02/09/2017)] [Electronically locked/signed by Benedicto Yancey R.N. (13:45 02/02/2017)]
--- NOTE | 2017-02-02 13:30 | ED CLINICAL REPORT ---
Clinical Report - Physicians/Mid Levels [facility] [address] [place] [address] 02/02/2017 11:30 Patient: JOANIE OROSCO Time Seen: 12:26. Arrived- By private vehicle. Historian- patient. HISTORY OF PRESENT ILLNESS Chief Complaint: SORE THROAT. This started about 6 days ago and is still present . It is not improving. It was gradual in onset and has been constant. Pain described as moderate. The patient has had a moderate sore throat with pain upon swallowing. Recent medical care: The patient was seen recently at this facility. Seen for similar symptoms. Diagnosed as Right peritonsillar abscess. REVIEW OF SYSTEMS No chills, fever, sweats, calf pain or chest pain. No cough, difficulty breathing, pedal edema, palpitations or abdominal pain. No constipation, diarrhea, nausea, vomiting or urinary problems. All systems otherwise negative, except as recorded above. PAST HISTORY Additional Surgeries: Ankle. Breast Augmentation. Medications: Lortab Oral. Augmentin Oral 875 mg, 2x a day, started 01/29/17. Decadron 4 mg, daily ((decadron liquid 6 mg x4 days)). Allergies: Sulfa Antibiotics. SOCIAL HISTORY Never smoker. Occasional alcohol use. No drug use. FAMILY HISTORY Denies family medical history. ADDITIONAL NOTES The nursing notes have been reviewed. PHYSICAL EXAM Vital Signs: 02/02/2017 11:53 BP: 118/69. HR: 64. RR: 18. O2 saturation: 100%. Temp: 98.4 F. Pain level now: 6/10. Have been reviewed. Appearance: Alert. Eyes: Pupils equal, round and reactive to light. ENT: Right-sided tonsillar exudate, swelling and erythema. Medium sized right-sided peritonsillar mass. No trismus present. No drooling. Neck: Trachea midline. No adenopathy. Thyroid normal. Neck supple. CVS: Normal heart rate and rhythm. Heart sounds normal. Respiratory: No respiratory distress. Breath sounds normal. Abdomen: Soft and nontender. No organomegaly. Skin: Normal skin color. No rash. Normal skin turgor. Extremities: Extremities exhibit normal ROM. PROGRESS AND PROCEDURES Course of Care: Patient is stable. Patient/family counseled. Old medical records reviewed. Disposition: Discharged. Condition: stable. CLINICAL IMPRESSION Right peritonsillar abscess. INSTRUCTIONS No driving or operating machinery while taking medication. Drink plenty of fluids. Warnings: Further evaluation is necessary. GENERAL WARNINGS: Return or contact your physician immediately if your condition worsens or changes unexpectedly, if not improving as expected, or if other problems arise. Your Current Medications: CONTINUE TAKING THE FOLLOWING MEDICATIONS: Augmentin Oral : 875 mg 2x a day, Started: 01/29/17. Lortab Oral. Understanding of the discharge instructions verbalized by patient. Follow-up with: Jagdish Cavazos MD, ENT, , [facility], [address] [place] [address], [id number] Follow up tomorrow. Call for an appointment. (Electronically signed by Say Caceres MD 02/09/2017 23:57)
--- NOTE | 2017-02-02 13:30 | ED CLINICAL REPORT ---
Clinical Report - Physicians/Mid Levels [facility] [address] [place] [address] 02/02/2017 11:30 Patient: JOANIE OROSCO Time Seen: 12:26. Arrived- By private vehicle. Historian- patient. HISTORY OF PRESENT ILLNESS Chief Complaint: SORE THROAT. This started about 6 days ago and is still present . It is not improving. It was gradual in onset and has been constant. Pain described as moderate. The patient has had a moderate sore throat with pain upon swallowing. Recent medical care: The patient was seen recently at this facility. Seen for similar symptoms. Diagnosed as Right peritonsillar abscess. REVIEW OF SYSTEMS No chills, fever, sweats, calf pain or chest pain. No cough, difficulty breathing, pedal edema, palpitations or abdominal pain. No constipation, diarrhea, nausea, vomiting or urinary problems. All systems otherwise negative, except as recorded above. PAST HISTORY Additional Surgeries: Ankle. Breast Augmentation. Medications: Lortab Oral. Augmentin Oral 875 mg, 2x a day, started 01/29/17. Decadron 4 mg, daily ((decadron liquid 6 mg x4 days)). Allergies: Sulfa Antibiotics. SOCIAL HISTORY Never smoker. Occasional alcohol use. No drug use. FAMILY HISTORY Denies family medical history. ADDITIONAL NOTES The nursing notes have been reviewed. PHYSICAL EXAM Vital Signs: 02/02/2017 11:53 BP: 118/69. HR: 64. RR: 18. O2 saturation: 100%. Temp: 98.4 F. Pain level now: 6/10. Have been reviewed. Appearance: Alert. Eyes: Pupils equal, round and reactive to light. ENT: Right-sided tonsillar exudate, swelling and erythema. Medium sized right-sided peritonsillar mass. No trismus present. No drooling. Neck: Trachea midline. No adenopathy. Thyroid normal. Neck supple. CVS: Normal heart rate and rhythm. Heart sounds normal. Respiratory: No respiratory distress. Breath sounds normal. Abdomen: Soft and nontender. No organomegaly. Skin: Normal skin color. No rash. Normal skin turgor. Extremities: Extremities exhibit normal ROM. PROGRESS AND PROCEDURES Course of Care: Patient is stable. Patient/family counseled. Old medical records reviewed. Disposition: Discharged. Condition: stable. CLINICAL IMPRESSION Right peritonsillar abscess. INSTRUCTIONS No driving or operating machinery while taking medication. Drink plenty of fluids. Warnings: Further evaluation is necessary. GENERAL WARNINGS: Return or contact your physician immediately if your condition worsens or changes unexpectedly, if not improving as expected, or if other problems arise. Your Current Medications: CONTINUE TAKING THE FOLLOWING MEDICATIONS: Augmentin Oral : 875 mg 2x a day, Started: 01/29/17. Lortab Oral. Understanding of the discharge instructions verbalized by patient. Follow-up with: Jagdish Cavazos MD, ENT, , [facility], [address] [place] [address], [id number] Follow up tomorrow. Call for an appointment. (Electronically signed by Say Caceres MD 02/09/2017 23:57)
--- NOTE | 2017-02-02 13:30 | ED ORDER SUMMARY ---
..... Patient: JOANIE OROSCO OrderSheet [facility] VisitID: [id number] [place] [address] 31y, F Registration Date/Time: 02/02/2017 ORDER SHEET Weight: 70.3 kg (stated) Allergies: Sulfa Antibiotics GENERAL ORDERS: Blood Culture (Yes) (augmentin) Urgent (12:27 02/02/2017 Pancho GORDON) (Ack 12:31 KHoerner) (12:50 KHoerner) CBC w Diff Urgent (12:02/02/2017 Pancho GORDON) (Ack 12:31 CARLOSoerner) (12:40 JBoardley R.N.) CMP Urgent (12:02/02/2017 Pancho GORDON) (Ack 12:31 CARLOSoerner) (12:40 JBoardley R.N.) Lactate, Serum Urgent (12:02/02/2017 Pancho GORDON) (Ack 12:31 KHoerner) (12:50 KHoerner) MEDICATION ORDERS: IV FLUIDS: IV NS : initial bolus 500 mL (1000 mL/hr), then 125 mL/hr for 4h (NOW); Urgent (12:29 02/02/2017 Pancho GORDON) (Ack 12:29 JBoardley R.N.) (12:41 JBoardley R.N.) ORDER SHEET NOTES: [Electronically signed by Benedicto Yancey R.N. (13:45 02/02/2017)] [Electronically signed by Say Caceres MD (23:57 02/09/2017)] [Electronically locked/signed by Benedicto Yancey R.N. (13:45 02/02/2017)]
--- NOTE | 2017-02-02 13:30 | ED NURSING NOTES ---
Clinical Report - Nurses [facility] [address] [place] [address] 02/02/2017 11:30 Patient: JOANIE OROSCO TRIAGE Triage time 11:53. Acuity: LEVEL 3. Chief Complaint: SORE THROAT. Alert. No acute distress. KRISSY COMA SCORE: Krissy Coma Scale: 15- eyes open spontaneously (4); best verbal response- oriented x 4 (5); best motor response- obeys commands (6). --12:01 Paulette Valadez R.N. 11:53 02/02/17. BP: 118/69. HR: 64. RR: 18. O2 saturation: 100% on room air. Temp: 98.4 F (oral). Pain level now: 02/19. --12:01 Paulette Valadez R.N. Weight: 70.3 kg stated. Height/Length: 65 inches Per Patient. BMI: 25.8. --11:55 Paulette Valadez R.N. Medications Decadron 4 mg, daily ((decadron liquid 6 mg x4 days)). --11:59 Paulette Valadez R.N. Augmentin Oral 875 mg, 2x a day, started 01/29/17. --12:00 Paulette Valadez R.N. Lortab Oral. --12:01 Paulette Valadez R.N. Allergies Sulfa Antibiotics. --11:54 Paulette Valadez R.N. History Arrived by private vehicle. Historian: patient. Unaccompanied. Primary physician (Olman). Onset. (about 1 1/2 weeks). ( seen here 3 days ago). PAST MEDICAL HX: Last normal menstrual period- January 2017. SOCIAL HX: Never smoker. Occasional alcohol use. No drug use. FALL RISK ASSESSMENT: Fall risk assessment completed. No fall risk identified. FUNCTIONAL ASSESSMENT: Functional assessment: no impairments noted. LEARNING NEEDS ASSESSMENT: The learning needs assessment revealed no barriers. --12:01 Paulette Valadez R.N. PROBLEMS: Peritonsillar Abscess. --11:56 Paulette Valadez R.N. ADDITIONAL SURGERIES: Ankle. Breast Augmentation. --11:56 Paulette Valadez R.N. Assessment GENERAL / NEURO / PSYCH: Alert. Oriented X 4. Appears in no acute distress. Patient appears calm and cooperative. RESPIRATORY: Respirations not labored. SKIN: Skin is warm and dry. --12:01 Paulette Valadez R.N. Interventions <<STRICKEN ENTRY-- ID and allergy band on patient. To treatment room. --12:01 Paulette Valadez R.N. --END STRIKE>> Correction --12:16 Paulette Valadez R.N. ID and allergy band on patient. To waiting room. --12:16 Paulette aVladez R.N. PHYSICAL ASSESSMENT 12:21 02/02/17. Ambulatory to room. GENERAL / NEURO / PSYCH: Oriented X 4. Appears in no acute distress. RESPIRATORY: Respirations not labored. CVS: Capillary refill less than 2 seconds. SKIN: Skin is warm and dry. --12:21 Benedicto Yancey R.N. NURSING PROGRESS NOTES 12:22 02/02/17. The plan of care for this patient has been created. Patient gowned. Head of bed elevated. Reassurance given. Two patient identifiers checked. Call light placed in reach. Side rails up x 2. Bed placed in lowest position. Brakes of bed on. --12:22 Benedicto Yancey R.N. 12:22 02/02/17. Care transferred and report given. --12:22 Benedicto Yancey R.N. 12:31 02/02/2017 Site #1 started via IV in the right antecubital space with an 20g angiocath; one attempt. Blood drawn: rainbow set and cultures x1. Labeled in the presence of the patient and sent to the lab. --12:41 Benedicto Yancey R.N. 12:36 02/02/2017 Started bag #1 1000 mL IV Fluids IV NS (Saline); at 1000 mL/hr over 1 hour(s) via site #1 via IV pump. Allergies verified and confirmed 5 rights. IV patency established site checked: no pain, redness, or swelling flushed thoroughly pre- and post-medication administration. Completed per protocol. --12:41 Benedicto Yancey R.N. 13:39 02/02/2017 IV Fluids IV NS Discontinued: bag #1 infused. Total amount infused: 500 mL. IV patency established. IV site checked: no pain, redness, or swelling. IV flushed thoroughly. --13:44 Benedicto Yancey R.N. DISPOSITION / DISCHARGE 13:43 02/02/17. Condition at departure: improved. The goals identified in the patient's plan of care were met. No learning barriers present. Discharge instructions provided and reviewed with the patient. Reviewed warnings. Reviewed medication(s). Treatments reviewed. Reviewed referral to an ear, nose, and throat specialist (wood crew supervisor). Patient verbalized understanding. Written instructions provided in Ukrainian. The patient was discharged by the physician. She was discharged home. She left the Emergency Department ambulatory and via private vehicle. Patient driving. FALL RISK ASSESSMENT: Fall risk assessment completed. No fall risk identified. --13:43 Benedicto Yancey R.N. 13:41 02/02/17. BP: 113/72. HR: 77. RR: 14. O2 saturation: 100% on room air. Temp: 98.2 F (oral). Pain level now: 10/22. --13:43 Benedicto Yancey R.N. Departure time: 13:43 Feb 02 2017. --13:43 Benedicto Yancey R.N. Locked/Released at 02/02/2017 13:45 by Benedicto Yancey R.N.
--- NOTE | 2017-02-02 13:30 | ED NURSING NOTES ---
Clinical Report - Nurses [facility] [address] [place] [address] 02/02/2017 11:30 Patient: JOANIE OROSCO TRIAGE Triage time 11:53. Acuity: LEVEL 3. Chief Complaint: SORE THROAT. Alert. No acute distress. KRISSY COMA SCORE: Krissy Coma Scale: 15- eyes open spontaneously (4); best verbal response- oriented x 4 (5); best motor response- obeys commands (6). --12:01 Paulette Valadez R.N. 11:53 02/02/17. BP: 118/69. HR: 64. RR: 18. O2 saturation: 100% on room air. Temp: 98.4 F (oral). Pain level now: 02/19. --12:01 Paulette Valadez R.N. Weight: 70.3 kg stated. Height/Length: 65 inches Per Patient. BMI: 25.8. --11:55 Paulette Valadez R.N. Medications Decadron 4 mg, daily ((decadron liquid 6 mg x4 days)). --11:59 Paulette Valadez R.N. Augmentin Oral 875 mg, 2x a day, started 01/29/17. --12:00 Paulette Valadez R.N. Lortab Oral. --12:01 Paulette Valadez R.N. Allergies Sulfa Antibiotics. --11:54 Paulette Valadez R.N. History Arrived by private vehicle. Historian: patient. Unaccompanied. Primary physician (Olman). Onset. (about 1 1/2 weeks). ( seen here 3 days ago). PAST MEDICAL HX: Last normal menstrual period- January 2017. SOCIAL HX: Never smoker. Occasional alcohol use. No drug use. FALL RISK ASSESSMENT: Fall risk assessment completed. No fall risk identified. FUNCTIONAL ASSESSMENT: Functional assessment: no impairments noted. LEARNING NEEDS ASSESSMENT: The learning needs assessment revealed no barriers. --12:01 Paulette Valadez R.N. PROBLEMS: Peritonsillar Abscess. --11:56 Paulette Valadez R.N. ADDITIONAL SURGERIES: Ankle. Breast Augmentation. --11:56 Paulette Valadez R.N. Assessment GENERAL / NEURO / PSYCH: Alert. Oriented X 4. Appears in no acute distress. Patient appears calm and cooperative. RESPIRATORY: Respirations not labored. SKIN: Skin is warm and dry. --12:01 Paulette Valadez R.N. Interventions <<STRICKEN ENTRY-- ID and allergy band on patient. To treatment room. --12:01 Paulette Valadez R.N. --END STRIKE>> Correction --12:16 Paulette Valadez R.N. ID and allergy band on patient. To waiting room. --12:16 Paulette Valadez R.N. PHYSICAL ASSESSMENT 12:21 02/02/17. Ambulatory to room. GENERAL / NEURO / PSYCH: Oriented X 4. Appears in no acute distress. RESPIRATORY: Respirations not labored. CVS: Capillary refill less than 2 seconds. SKIN: Skin is warm and dry. --12:21 Benedicto Yancey R.N. NURSING PROGRESS NOTES 12:22 02/02/17. The plan of care for this patient has been created. Patient gowned. Head of bed elevated. Reassurance given. Two patient identifiers checked. Call light placed in reach. Side rails up x 2. Bed placed in lowest position. Brakes of bed on. --12:22 Benedicto Yancey R.N. 12:22 02/02/17. Care transferred and report given. --12:22 Benedicto Yancey R.N. 12:31 02/02/2017 Site #1 started via IV in the right antecubital space with an 20g angiocath; one attempt. Blood drawn: rainbow set and cultures x1. Labeled in the presence of the patient and sent to the lab. --12:41 Benedicto Yancey R.N. 12:36 02/02/2017 Started bag #1 1000 mL IV Fluids IV NS (Saline); at 1000 mL/hr over 1 hour(s) via site #1 via IV pump. Allergies verified and confirmed 5 rights. IV patency established site checked: no pain, redness, or swelling flushed thoroughly pre- and post-medication administration. Completed per protocol. --12:41 Benedicto Yancey R.N. 13:39 02/02/2017 IV Fluids IV NS Discontinued: bag #1 infused. Total amount infused: 500 mL. IV patency established. IV site checked: no pain, redness, or swelling. IV flushed thoroughly. --13:44 Benedicto Yancey R.N. DISPOSITION / DISCHARGE 13:43 02/02/17. Condition at departure: improved. The goals identified in the patient's plan of care were met. No learning barriers present. Discharge instructions provided and reviewed with the patient. Reviewed warnings. Reviewed medication(s). Treatments reviewed. Reviewed referral to an ear, nose, and throat specialist (catalogue librarian). Patient verbalized understanding. Written instructions provided in Irish. The patient was discharged by the physician. She was discharged home. She left the Emergency Department ambulatory and via private vehicle. Patient driving. FALL RISK ASSESSMENT: Fall risk assessment completed. No fall risk identified. --13:43 Benedicto Yancey R.N. 13:41 02/02/17. BP: 113/72. HR: 77. RR: 14. O2 saturation: 100% on room air. Temp: 98.2 F (oral). Pain level now: 10/22. --13:43 Benedicto Yancey R.N. Departure time: 13:43 Feb 02 2017. --13:43 Benedicto Yancey R.N. Locked/Released at 02/02/2017 13:45 by Benedicto Yancey R.N.
--- NOTE | 2017-02-09 23:58 | ED MED RECONCILIATION SUMMARY ---
Patient: JOANIE OROSCO Medication Reconciliation Report [facility] VisitID: [id number] [address] [place] [address] 31y, F Registration Date/Time: 02/02/2017 Weight: 70.3 kg Height/Length: 65 in. BMI: 25.8 ALLERGIES: Sulfa Antibiotics The patient's Home Medications are listed below: CONTINUE TAKING THE FOLLOWING MEDICATIONS: Augmentin Oral 875 mg, 2x a day Lortab Oral THE FOLLOWING MEDICATIONS NEED TO BE RECONCILED: Decadron 4 mg, daily, (decadron liquid 6 mg x4 days) The source(s) of the original Home Medication information: Not obtained. The following Medications were given to the patient in the Emergency Department: IV NS IV Fluids bolus 0, then 1000 mL/hr, administered: 02/02/2017 12:36:00 PM The following Medications were prescribed to the patient: None.
--- NOTE | 2017-02-09 23:58 | ED MAR SUMMARY ---
..... Medication Administration Record [facility] [address] [place] [address] Patient: JOANIE OROSCO Visit ID: [id number] 31y, F Weight: 70.3 kg Height/Length: 65 in BMI: 25.8 ALLERGIES: Sulfa Antibiotics Start 12:36 02/02/2017 Benedicto Yancey R.N., Stop 13:39 02/02/2017 Benedicto Yancey R.N. Medication Administered: IV NS (SALINE), Dose: IV Fluids over 1 hour(s), Rate: 1000 mL/hr, Dispensed: 1000 mL bag, Site: #1 right AC. Medication Ordered: IV NS : initial bolus 500 mL (1000 mL/hr), then 125 mL/hr for 4h (NOW); Urgent.
--- NOTE | 2017-02-09 23:58 | ED DISCHARGE INSTRUCTIONS ---
Patient: JOANIE OROSCO General Instructions [facility] VisitID: [id number] [address] [place] [address] 31y, F Registration Date/Time: 02/02/2017 Right peritonsillar abscess. INSTRUCTIONS No driving or operating machinery while taking medication. Drink plenty of fluids. Warnings: Further evaluation is necessary. GENERAL WARNINGS: Return or contact your physician immediately if your condition worsens or changes unexpectedly, if not improving as expected, or if other problems arise. Your Current Medications: CONTINUE TAKING THE FOLLOWING MEDICATIONS: Augmentin Oral : 875 mg 2x a day, Started: 01/29/17. Lortab Oral. Understanding of the discharge instructions verbalized by patient. Follow-up with: Jagdish Cavazos MD, ENT, , [facility], [address] [place] [address], [facility] [address] Follow up tomorrow. Call for an appointment. ADDITIONAL INFORMATION Peritonsillar Abscess Your throat pain is due to an infection in and around the tonsils. This is due to a bacterial infection causing an abscess (collection of pus) to form around the tonsil. This abscess can cause severe pain when swallowing or trying to open your mouth wide. An early abscess may be treated with antibiotics alone. A larger abscess will require surgical drainage plus antibiotics. The bacteria causing this condition may be contagious. It can be spread by coughing, kissing or touching others after you touch your mouth or nose. It may produce a sore throat in others (not necessarily a peritonsillar abscess). Home Care: 1) Take your antibiotics until finished, even if you feel better after the first few days of treatment. This is very important to prevent later problems from this infection (such as heart or kidney disease). 2) If your symptoms are severe, rest at home for the first 2-3 days. 3) Children : Use Tylenol (acetaminophen) for fever, fussiness or discomfort. In infants over six months of age, you may use ibuprofen (Children's Motrin) instead of Tylenol. (Aspirin should never be used in anyone under 18 years of age who is ill with a fever. It may cause severe liver damage.) Adults : For muscle aching or throat pain, you may take ibuprofen (Advil, Motrin) or Tylenol (acetaminophen) unless another pain medicine was prescribed. [ NOTE : If you have chronic liver or kidney disease or ever had a stomach ulcer or GI bleeding, talk with your doctor before using these medicines.] (Aspirin should never be used in anyone under 18 years of age who is ill with a fever. It may cause severe liver damage.) 4) Throat lozenges or sprays (Chloraseptic and others) may help reduce throat pain. This is especially useful just before meals. 5) Gargle with warm salt water four times a day for the first two days. Dissolve 1/2 teaspoon of salt in 1 glass of hot water. Follow Up with your doctor or this facility as advised within 1-2 days. If you are treated with antibiotics alone, it is very important to be rechecked within 24 hours to be sure that the abscess is not getting bigger. Get Prompt Medical Attention if any of the following occur: -- Fever over 100.5 F (38.0 C) oral by the third day of treatment -- Throat pain, neck pain or headache that gets worse -- Unable to swallow liquids or take your medicine -- Trouble breathing or noisy breathing You have been given the following additional information: Peritonsillar Abscess No driving or operating machinery while taking medication. (Electronically signed by Say Caceres MD 02/09/2017 23:57)
--- NOTE | 2017-02-09 23:58 | ED MAR SUMMARY ---
..... Medication Administration Record [facility] [address] [place] [address] Patient: JOANIE OROSCO Visit ID: [id number] 31y, F Weight: 70.3 kg Height/Length: 65 in BMI: 25.8 ALLERGIES: Sulfa Antibiotics Start 12:36 02/02/2017 Benedicto Yancey R.N., Stop 13:39 02/02/2017 Benedicto Yancey R.N. Medication Administered: IV NS (SALINE), Dose: IV Fluids over 1 hour(s), Rate: 1000 mL/hr, Dispensed: 1000 mL bag, Site: #1 right AC. Medication Ordered: IV NS : initial bolus 500 mL (1000 mL/hr), then 125 mL/hr for 4h (NOW); Urgent.
--- NOTE | 2017-02-09 23:58 | ED DISCHARGE INSTRUCTIONS ---
Patient: JOANIE OROSCO General Instructions [facility] VisitID: [id number] [address] [place] [address] 31y, F Registration Date/Time: 02/02/2017 Right peritonsillar abscess. INSTRUCTIONS No driving or operating machinery while taking medication. Drink plenty of fluids. Warnings: Further evaluation is necessary. GENERAL WARNINGS: Return or contact your physician immediately if your condition worsens or changes unexpectedly, if not improving as expected, or if other problems arise. Your Current Medications: CONTINUE TAKING THE FOLLOWING MEDICATIONS: Augmentin Oral : 875 mg 2x a day, Started: 01/29/17. Lortab Oral. Understanding of the discharge instructions verbalized by patient. Follow-up with: Jagdish Cavazos MD, ENT, , [facility], [address] [place] [address], [facility] [id number] Follow up tomorrow. Call for an appointment. ADDITIONAL INFORMATION Peritonsillar Abscess Your throat pain is due to an infection in and around the tonsils. This is due to a bacterial infection causing an abscess (collection of pus) to form around the tonsil. This abscess can cause severe pain when swallowing or trying to open your mouth wide. An early abscess may be treated with antibiotics alone. A larger abscess will require surgical drainage plus antibiotics. The bacteria causing this condition may be contagious. It can be spread by coughing, kissing or touching others after you touch your mouth or nose. It may produce a sore throat in others (not necessarily a peritonsillar abscess). Home Care: 1) Take your antibiotics until finished, even if you feel better after the first few days of treatment. This is very important to prevent later problems from this infection (such as heart or kidney disease). 2) If your symptoms are severe, rest at home for the first 2-3 days. 3) Children : Use Tylenol (acetaminophen) for fever, fussiness or discomfort. In infants over six months of age, you may use ibuprofen (Children's Motrin) instead of Tylenol. (Aspirin should never be used in anyone under 18 years of age who is ill with a fever. It may cause severe liver damage.) Adults : For muscle aching or throat pain, you may take ibuprofen (Advil, Motrin) or Tylenol (acetaminophen) unless another pain medicine was prescribed. [ NOTE : If you have chronic liver or kidney disease or ever had a stomach ulcer or GI bleeding, talk with your doctor before using these medicines.] (Aspirin should never be used in anyone under 18 years of age who is ill with a fever. It may cause severe liver damage.) 4) Throat lozenges or sprays (Chloraseptic and others) may help reduce throat pain. This is especially useful just before meals. 5) Gargle with warm salt water four times a day for the first two days. Dissolve 1/2 teaspoon of salt in 1 glass of hot water. Follow Up with your doctor or this facility as advised within 1-2 days. If you are treated with antibiotics alone, it is very important to be rechecked within 24 hours to be sure that the abscess is not getting bigger. Get Prompt Medical Attention if any of the following occur: -- Fever over 100.5 F (38.0 C) oral by the third day of treatment -- Throat pain, neck pain or headache that gets worse -- Unable to swallow liquids or take your medicine -- Trouble breathing or noisy breathing You have been given the following additional information: Peritonsillar Abscess No driving or operating machinery while taking medication. (Electronically signed by Say Caceres MD 02/09/2017 23:57)
--- NOTE | 2017-02-09 23:58 | ED MED RECONCILIATION SUMMARY ---
Patient: JOANIE OROSCO Medication Reconciliation Report [facility] VisitID: [id number] [address] [place] [address] 31y, F Registration Date/Time: 02/02/2017 Weight: 70.3 kg Height/Length: 65 in. BMI: 25.8 ALLERGIES: Sulfa Antibiotics The patient's Home Medications are listed below: CONTINUE TAKING THE FOLLOWING MEDICATIONS: Augmentin Oral 875 mg, 2x a day Lortab Oral THE FOLLOWING MEDICATIONS NEED TO BE RECONCILED: Decadron 4 mg, daily, (decadron liquid 6 mg x4 days) The source(s) of the original Home Medication information: Not obtained. The following Medications were given to the patient in the Emergency Department: IV NS IV Fluids bolus 0, then 1000 mL/hr, administered: 02/02/2017 12:36:00 PM The following Medications were prescribed to the patient: None.
== END 2017-02-02 13:43 | disposition home or self-care (01) ==
LOC: ED SRH 11:31
DX: J36 Peritonsillar abscess (principal); Z79.899 Other long term (current) drug therapy; Z88.2 Allergy status to sulfonamides
CPT/HCPCS: 90065; 90100; 92031; 95059